=== PATIENT | male | born 1980 | race Caucasian/White ===

== ENCOUNTER 2017-04-12 21:50 | Inpatient (IN) | payer OTHER ==
[~2017-04-12] VITALS: Ht 172.7 cm; Wt 91.0 kg
--- NOTE | ~2017-04-12 | DS ---
Unit #: [id number] #: [id number] Patient: SUSIE CORADO [id number] [address] [place], [place] [address] [id number] I MR#: [id number] NAME: SUSIE CORADO ROOM: 310 Age: 36 Sex: M Admission Date: 04/13/2017 : 1980 Discharge Date: 04/17/2017 Attending Physician: Ramón Armando M.D. DISCHARGE SUMMARY REASON FOR ADMISSION Chest pain. HISTORY OF PRESENT ILLNESS/HOSPITAL COURSE Please refer to H and P for complete details. Essentially, the patient is a known IV drug abuser, who apparently had an overdose several weeks prior to admission, received CPR, and essentially details were not clear. He was noted on initial workup to have a left fifth rib fracture probably likely secondary to CPR, he was thus admitted for the same. It was also noted that he did have an elevated temperature while at home. He stated that he felt feverish and had diffuse arthralgias and/or myalgias. He was noted to have an elevated temperature of 101.6, and therefore, was admitted for the same. Underlying concern for possible endocarditis was made. The patient was seen and evaluated, and placed on telemetry floor. He continued to have low-grade fevers while he was here. Initial blood cultures did come back positive 1/2 for MRSA, this subsequently prompted an ID consultation. The patient was placed on routine and formal IV antibiotics. 2D echocardiogram was performed, which did reveal left ventricular systolic normal function with no vegetations noted on 2D echocardiogram; however, Infectious Disease Services did recommend TRAN to be performed. Plans were initiated for TRAN to be performed on 04/19/[address] Pelayo. However, on 04/17/2017, the patient stated that he "had better things to do," and therefore, decided to leave against medical advice. His discharge medications are unknown as well as further disposition is unknown, as the patient elected to leave against medical advice. At this point in time, his prognosis at best remains guarded/poor. He has longstanding history of IV drug abuse. We did place consultation to Dr. East, who saw and evaluated the patient here, maintained him on Requip, Vistaril, as well as trazodone. Did recommend consideration to outpatient [facility] for further evaluation. However, once again, he left AMA; therefore, at this point in time, I do not know further discharge plans. FINAL DISCHARGE DIAGNOSES 1. Fever present on admission. 2. Methicillin-resistant Staphylococcus aureus bacteremia positive 08/24, unclear source. 3. IV drug abuse ongoing. 4. Noncompliance. 5. Poor insight into disease process. Unit #: [id number] #: [id number] Patient: SUSIE CORADO 6. Chest wall pain likely secondary to recent cardiopulmonary resuscitation. 7. Left fifth rib fracture. DISCHARGE MEDICATIONS Unknown. The patient left AMA. Dictated by... Kory Chauhan/edouard TD: 04/19/2017 16:15 JOB #: [id number] DISCHARGE SUMMARY Page 1 of 1 X Ramón Armando MD X DISCHARGE SUMMARY
--- NOTE | ~2017-04-12 | CT16 ---
[facility] A Service of [facility] & [facility] RADIOLOGY TEXT RESULTS PATIENT: SUSIE CORADO LOCATION: [facility] 310-01 : 82 UNIT #: [id number] AGE: [address]: Ramón Armando MD SEX: M ORDER DR: [id number] [facility] [address] [facility]. [place], [place] [address] [id number] I MR#: [id number] Acc #: [id number] NAME: SUSIE CORADO : 1980 SEX: M STUDY DATE/TIME: 04/13/2017 3:58 UNIT: A PCU ROOM: 310 STUDY DESCRIPTION: CT Angio Chest for PE Attending Physician: Ramón Armanod M.D. Ordering Physician: Spencer Caban M.D. Primary Care Physician: No Primary Care Physician MEDICAL IMAGING REPORT This report is preliminary unless electronic signature is present EXAM CT chest with contrast, pulmonary arteriography protocol, 04/13/2017. HISTORY 36-year-old male 5 days status post cardiopulmonary resuscitation in another emergency department for reported drug overdose. He presents to this ED today complaining of ongoing left side chest pain, greatest with inspiration. TECHNIQUE CT examination of the chest with IV contrast using pulmonary arteriography protocol. CTA MIP images of the pulmonary arteries were reformatted in multiple planes. The initial set of images was nondiagnostic due to poor contrast opacification. The exam was then repeated after adjusting injection method and contrast timing with only slight improvement. This CT exam was performed with one or more of the following radiation dose reduction techniques: automatic exposure control, adjustment of mA and/or kV according to patient size, and iterative reconstruction. FINDINGS No evidence of pulmonary embolism within the main pulmonary arteries or larger central pulmonary arteries. Smaller peripheral pulmonary arteries are not assessed. Thoracic aorta is normal in caliber. Heart size normal. No pericardial effusion. There is a nondisplaced fracture through the anterior portion of the left fifth rib, and there is extensive overlying soft tissue contusion within the left anterior chest wall. There is also a tiny left pleural effusion with atelectasis in the dependent left lung base and additional atelectasis in the lingula deep to the fifth rib fracture. There is no pneumothorax. Remaining portions of both lungs are clear. Limited upper abdominal images are unremarkable. [facility]. [facility] A Service of [facility] RADIOLOGY TEXT RESULTS PATIENT: SUSIE CORADO LOCATION: [facility] 310-01 : [birth year] UNIT #: [id number] AGE: [address]: Ramón Armando MD SEX: M ORDER DR: IMPRESSION 1. Acute nondisplaced fracture of the left anterior fifth rib with extensive overlying soft tissue contusion in the left anterior chest wall and some underlying atelectasis in the lingula. No additional rib fracture. No pneumothorax. No other rib or sternum fracture. 2. Tiny left pleural effusion with dependent atelectasis in the left lung base. 3. No visible pulmonary embolism. Limitations as noted above. Dictated by... Damon Campbell M.D. THIS IS AN ELECTRONICALLY VERIFIED REPORT Damon Campbell M.D. at 04/13/2017 4:47 PM RGW/gz TD: 04/13/2017 11:38 JOB #: [id number] MEDICAL IMAGING REPORT Page 1 of 1 COPY
--- NOTE | ~2017-04-12 | CR72 ---
[facility] A Service of [facility] RADIOLOGY TEXT RESULTS PATIENT: SUSIE CORADO LOCATION: [facility] 310-01 : 82 UNIT #: [id number] AGE: [address]: Ramón Armando MD SEX: M ORDER DR: [id number] [facility] [address] [facility]. [place], [place] [address] [id number] I MR#: [id number] Acc #: [id number] NAME: SUSIE CORADO : 1980 SEX: M STUDY DATE/TIME: 04/12/2017 22:11 [facility] STUDY DESCRIPTION: CR Chest Single View Portable Attending Physician: Ramón Armando M.D. Ordering Physician: Mike Salguero M.D. Primary Care Physician: No Primary Care Physician MEDICAL IMAGING REPORT This report is preliminary unless electronic signature is present EXAM Portable chest 04/12/2017 HISTORY Mid left side chest pain for 4 days after giving chest compression to a friend. Smoking history. FINDINGS A single AP portable view of the chest shows both lungs to be clear. The heart is normal in size. The mediastinal contour is normal. No significant bone abnormalities are seen. IMPRESSION Normal portable chest. Dictated by... Mark Fuller M.D. THIS IS AN ELECTRONICALLY VERIFIED REPORT Mark Fuller M.D. at 04/13/2017 2:17 PM KRT/latasha TD: 04/13/2017 11:47 JOB #: [id number] MEDICAL IMAGING REPORT Page 1 of 1 COPY
--- NOTE | ~2017-04-12 | HP ---
Unit #: [id number] #: [id number] Patient: SUSIE CORADO [id number] [address] [address] [id number] E MR#: [id number] NAME: SUSIE CORADO ROOM: Age: 36 Sex: M Admission Date: 04/12/2017 : 1980 Attending Physician: Spencer Caban M.D. Primary Care Physician: No Primary Care Physician HISTORY AND PHYSICAL CHIEF COMPLAINT Fever in patient who injects heroin. HISTORY This 36-year-old male with history of heroin abuse is admitted for fever. The patient states that five days ago he received CPR for an unknown reason. Has been experiencing left-sided chest pain since that time. He presented to this emergency department late last evening with a temperature of 101.6. He denies cough or dysuria. A CTA was ultimately performed revealing a left anterior fifth rib fracture with soft tissue contusion of the chest wall and atelectasis. In the ER, he was bolused with IV fluids, given vancomycin and Zithromax. Again, denies cough or dysuria with the above. The patient himself is a poor historian and I have to prompt him several times to answer my questions. PAST MEDICAL HISTORY Unremarkable. ALLERGIES To codeine. HOME MEDICATIONS None. FAMILY HISTORY Was reviewed and is negative. SOCIAL HISTORY The patient states that he lives alone, smokes 1/2 pack per day of tobacco, and does not drink alcohol. Injects heroin on a daily basis. REVIEW OF SYSTEMS Difficult to obtain as I have to prompt the patient multiple times to answer my questions. PHYSICAL EXAMINATION GENERAL APPEARANCE: 36-year-old, mildly obese male who is moaning in discomfort. VITAL SIGNS: Temperature 101.6, pulse 128, respirations 18, blood pressure 107/66, and O2 saturation is 100% on room air. HEENT: Eyes: PERRLA. Extraocular muscles are intact. Pharynx is benign. NECK: Supple without adenopathy or thyromegaly. Unit #: [id number] #: [id number] Patient: SUSIE CORADO CHEST: Clear. CARDIAC: Tachy S1 and S2 without definite murmur. Left chest wall tenderness with redness and some swelling under the left breast from recent CPR. ABDOMEN: Bowels sounds are present. No hepatosplenomegaly, tenderness, or masses. EXTREMITIES: Without edema. Pedal pulses are present. No splinter hemorrhages noted over the fingernail beds. SKIN: Examination reveals some superficial picked dewitt and also track dewitt. NEUROLOGIC: Patient is mildly somnolent, moaning, but easily arousable. His cranial nerves are intact. He has equal strength throughout. DIAGNOSTIC STUDIES ADMISSION LABS: Hematocrit is 39.8, white blood count is 16.5, normal platelet count, 2 bands. SMA-12: Sodium 134, ALT 41. Lactic acid is normal. Urine tox screen is pending. Urinalysis: Trace protein. IMAGING: Chest x-ray: No acute disease. CTA of the chest shows a left anterior fifth rib fracture with soft tissue contusion over the chest wall and atelectasis. Tiny left pleural effusion. CARDIOVASCULAR: EKG: Sinus tachycardia, rate 120. ASSESSMENT 1. Fever in patient who injects heroin. Without bacteremia. 2. Left fifth rib fracture following CPR for an unknown reason five days ago. 3. Heroin abuse. PLANS 1. IV fluids. 2. Vancomycin and Rocephin pending blood cultures. 3. Medications for opiate withdrawal. Will ask social work to see for help at the time of discharge for the patient's substance abuse. 4. Check urine tox screen and HIV. 5. Gentle pain control. Dictated by Kory Lerma/lien TD: 04/13/2017 06:12 JOB #: [id number] Unit #: [id number] #: [id number] Patient: SUSIE CORADO HISTORY AND PHYSICAL Page 1 of 1 X Sarah Montelongo MD HISTORY AND PHYSICAL
--- NOTE | ~2017-04-12 | EKG ---
PATIENT: SUSIE CORADO UNIT #: [id number] Ventricular Rate: 121 BPM Atrial Rate: 121 BPM P-R Interval: 134 ms QRS Duration: 84 ms Q-T Interval: 290 ms QTC Calculation(Bezet): 411 ms P [place]: 63 degrees Calculated R [place]: 46 degrees Calculated T [place]: 48 degrees Diagnosis Line: Sinus tachycardia Diagnosis Line: Otherwise normal ECG Diagnosis Line: No previous ECGs available Diagnosis Line: Confirmed by JOE MOSCOSO MD ([id number]) on Diagnosis Line: 04/13/2017 12:16:00 PM INTERPRETING MD: LEYLA
--- NOTE | ~2017-04-12 | CO ---
Unit #: [id number] #: [id number] Patient: SUSIE CORADO [id number] [address] [address] [id number] I MR#: [id number] NAME: SUSIE CORADO ROOM: 310 Age: 36 Sex: M Admission Date: 04/13/2017 : 1980 Attending Physician: Ramón Armando M.D. Primary Care Physician: No Primary Care Physician Consultation Date: 04/15/2017 CONSULTATION REPORT REASON FOR CONSULTATION Positive blood culture. HISTORY OF PRESENT ILLNESS The patient is a 36-year-old gentleman with history of IV drug use. Last use was a week before being admitted. According to the notes, the patient received CPR a few days prior to admission. The patient is really unclear as to why it was done and where it was done, but nonetheless, he started having some pain on the left side of his chest with deep inspiration and upper body movement. Cannot remember when his fever started. With these problems, he came into the hospital. CT scan of the chest shows no pulmonary embolism. Did have acute left anterior fifth rib fracture with contusion. He also had fever and leukocytosis. He was admitted. Blood culture, one out of two upon admission, is Staphylococcus aureus. Sensitivity is pending. He is on Rocephin and vancomycin. Infectious disease consultation was requested for further evaluation and antibiotic management. On questioning at this time he is complaining of pain in the left elbow, which he says started after he came to the hospital. No trauma. No injury. PAST MEDICAL HISTORY Unremarkable. FAMILY HISTORY Noncontributory. SOCIAL HISTORY Remarkable for IV drug use. ALLERGIES Codeine. CURRENT MEDICATIONS Reviewed. Antibiotics include vancomycin and Rocephin. PHYSICAL EXAMINATION GENERAL: Lying in bed. Dozing off. VITAL SIGNS: Temperature 98, T-max 101.6, pulse 87, respirations 16, blood pressure 124/78. HEENT: Unremarkable. NECK: Supple. CHEST: Clear to auscultation. HEART: Normal S1 and S2. ABDOMEN: Soft, nontender. Bowel sounds positive. Unit #: [id number] #: [id number] Patient: SUSIE CORADO EXTREMITIES: No edema. Left elbow - There is no significant swelling, warmth, erythema, but it definitely is tender to touch, and there is restricted range of motion. DIAGNOSTIC STUDIES IMAGING: CT chest negative for pulmonary embolism. It did show left fifth anterior rib fracture and contusion. LABS: BUN 8, creatinine 0.7, AST 38, ALT 41, alkaline phosphatase 57. Lactic acid was 0.7. WBC 16.5, hemoglobin 13.6, platelets 257. HIV serology nonreactive. Tox screen positive for amphetamines, marijuana and opiates. Urinalysis had some trace proteinuria. Blood culture, one out of two upon admission, Staphylococcus aureus. Sensitivity is pending. Repeat cultures have been ordered. CARDIOVASCULAR: Transthoracic echo negative for any vegetation. ASSESSMENT 1. Staphylococcus aureus bacteremia, question source. 2. IV drug use. 3. Rule out left elbow septic arthritis. 4. Left fifth anterior rib fracture with contusion. PLAN At this time, I will go ahead and continue with vancomycin and stop Rocephin pending sensitivities of the Staphylococcus aureus. Follow up on the repeat cultures. Two-D echo is negative. if not other source is found, transesophageal echo may be needed. Will go ahead and get MRI of the left elbow with contrast for further evaluation of the pain to rule out any possibility of septic joint. Further recommendations depending upon the course. I would like to thank Dr. Armando for requesting us to participate in the care of this patient. We will follow this patient along with you. Dictated by... Kory Burden/bertram TD: 04/16/2017 08:53 JOB #: [id number] CONSULTATION REPORT Page 1 of 1 X Christiano Alvarenga MD X CONSULTATION REPORT
--- NOTE | ~2017-04-12 | CO ---
Unit #: [id number] #: [id number] Patient: SUSIE CORADO [id number] [address] [address] [id number] I MR#: [id number] NAME: SUSIE CORADO ROOM: 310 Age: 36 Sex: M Admission Date: 04/13/2017 : 1980 Attending Physician: Ramón Armando M.D. Primary Care Physician: No Primary Care Physician Consultation Date: 04/16/2017 CONSULTATION REPORT REASON FOR CONSULTATION TRAN. HISTORY OF PRESENT ILLNESS This is a 36-year-old male, who presented to the ER with reports of left chest pain/soreness, worse with deep breaths, lasting approximately five days. States the pain stared after receiving chest compressions from a friend who overdosed. His temperature in the ER was 101.6. A CT of the chest was negative for PE and positive for fifth rib fracture with soft tissue contusion and a tiny left pleural effusion. Blood cultures done on April 12 were positive for MRSA in 1/4 cultures. An echocardiogram done April 14, 2017, showed a left ventricular ejection fraction of 60% and no wall abnormalities and no valvular abnormalities were seen. He denies a prior history of medical diseases. Denies hypertension. Denies hyperlipidemia and denies diabetes mellitus. He is an IV drug abuser with heroin and methamphetamine. PAST MEDICAL HISTORY No known past medical history. FAMILY HISTORY States his mother had cardiac bypass as a child. SOCIAL HISTORY He is a 36-year-old male who smokes one pack per day for the past 15 years. He rarely uses alcohol. States he uses IV heroin as well as amphetamines and marijuana. REVIEW OF SYSTEMS He does report left-sided chest pain worse with deep breath described as soreness. He denies palpitations, shortness of air, or difficulty breathing. ALLERGIES Codeine. HOME MEDICATIONS He is not on any home medications. PHYSICAL EXAMINATION VITAL SIGNS: Temperature 98.3, heart rate 75, respiratory rate 16, blood pressure 91/57 to 101/60. HEENT: Head is atraumatic and normocephalic. Pupils are equal and reactive to light. Mucous membranes are moist and intact. Unit #: [id number] #: [id number] Patient: SUSIE CORADO NECK: Supple. Trachea is midline. No JVD. LUNGS: Clear. Nonlabored respirations. CARDIOVASCULAR: S1, S2. Regular rate and rhythm. No significant murmurs, rubs, or gallops. ABDOMEN: Soft, nontender, nondistended. Bowel sounds are active. EXTREMITIES: Pulses are palpable. No pedal edema. NEUROLOGIC: Alert and oriented x3. Follows all commands equally and moves extremities without difficulty. DIAGNOSTIC STUDIES LABORATORY: Sodium 132, potassium 4.2, chloride 100, BUN 10, creatinine 0.7, glucose 110. Point of care troponin was less than 0.05. Hemoglobin 12.6, hematocrit 36.4, white blood cell count 5.5, platelets 217,000. Tox screen was positive for amphetamines, marijuana, and opiates. Blood cultures done April 13, 2017 was positive for MRSA in 1/4 cultures. IMAGING: Chest x-ray showed normal portal chest x-ray. CT angio of chest was negative for PE. It did show acute nondisplaced fracture of left fifth rib with extensive overlying soft tissue contusion in the left anterior chest wall and underlying atelectasis in the lingula. There was no pneumothorax. There was a tiny left pleural effusion with dependent atelectasis in the left lung base. CARDIOVASCULAR: EKG shows sinus tachycardia with a rate of 120 and nonspecific T-wave abnormalities. ASSESSMENT 1. Left rib fracture with soft tissue contusion. 2. IV drug abuse. 3. Methicillin-resistant Staphylococcus aureus bacteremia. 4. Tobacco abuse. PLAN The patient ate this morning. We will plan to do a TRAN on Wednesday. He is to be NPO after midnight on Wednesday night. Risks and benefits were discussed with the patient and he verbalized understanding of this. Thank you for asking us to see this patient. We appreciate the consult. Dictated by... Chikis Dunaway APRN for Kory Garcia TD: 04/17/2017 11:29 JOB #: [id number] Unit #: [id number] #: [id number] Patient: SUSIE CORADO CONSULTATION REPORT Page 1 of 1 X X CONSULTATION REPORT
--- NOTE | ~2017-04-12 | CO ---
Unit #: [id number] #: [id number] Patient: NIK CORADO [id number] [facility] [address] [place], [place] [address] [id number] I MR#: [id number] NAME: NIK CORADO ROOM: 310 Age: 36 Sex: M Admission Date: 04/13/2017 : 1980 Attending Physician: Ramón Armando M.D. Primary Care Physician: No Primary Care Physician Consultation Date: 04/16/2017 CONSULTATION REPORT REASON FOR CONSULTATION Opiate abuse, opiate withdrawal, depression. HISTORY OF PRESENT ILLNESS Mr. Nik Corado is a 36-year-old male seen in room 310, bed 1 at [facility] on 04/16/2017. Patient reported history of IV opiate abuse, last use two days, having withdrawals. Patient reported that medication is helping some but still having a lot of problems with hot and cold sweats, anxiety, restlessness of his legs, trouble sleeping, depression. Denied any suicidal or homicidal ideation. Denied any psychotic symptoms. Patient's vital signs are 99, 78, 16, 109/67, oxygen saturation 99%. Patient was admitted due to fever. PAST PSYCHIATRIC HISTORY Patient's past psychiatric history is remarkable for history of substance abuse and depression. As mentioned above, drug of choice opiates. MEDICAL HISTORY Unremarkable except for current infection due to IV drug abuse. MEDICATION HISTORY No medications at home but currently prescribed: Percocet, Librium, morphine. FAMILY HISTORY AND SOCIAL HISTORY Patient reported he has a good support system. No history of abuse. History of substance abuse as mentioned above. REVIEW OF SYSTEMS A complete review of systems is unremarkable except as mentioned above. MENTAL STATUS EXAMINATION Vital signs are 99, 78, 16, 109/67, oxygen saturation 99%. General appearance: The patient dressed casually in hospital attire. Attention span and concentration fair. Speech regular rate, coherent. Oriented in time, place, and person. Mood and affect sad, dysphoric. Thought process coherent. Thought content: The patient denied any thoughts of harming self or others or any hallucinations. Recent and remote memory fair. Language intact. Fund of knowledge fair to slightly impaired. Insight and judgment fair to slightly impaired. DIAGNOSES PSYCHIATRIC: Opiate use disorder, severe, F11.20. Mood disorder, not otherwise specified, F32.9. Unit #: [id number] #: [id number] Patient: NIK CORADO SECONDARY DIAGNOSIS: Deferred. MEDICAL DIAGNOSIS: Please refer to history and physical. STRESSORS: Psychosocial stressors. ASSESSMENT AND PLAN 1. Supportive psychotherapy and psychoeducation provided to patient. 2. Educated about benefits and side effects of medication and course and prognosis of illness. 3. Advised to continue with current medication with plan to add Vistaril 25 mg three times a day, Requip 1 mg at bedtime, trazodone 50 mg at bedtime for sleep. Patient to continue with current treatment. If needed, consider further adjustment of medication. Patient was advised to follow up in (1) program upon discharge and given crisis line number, [phone]. Dictated by... Kory Wilson/tico TD: 04/18/2017 13:35 JOB #: [id number] CONSULTATION REPORT Page 1 of 1 X Wiley East MD X CONSULTATION REPORT
[~2017-04-12 21:50] MED LIST: KEFLEX500 MG PO; NO MEDICATIONS; ORUDIS75 M1 PO; VIBRAMYCIN100 M1 PO
[2017-04-12 23:20] LABS: BASOPHIL# 0.2 X10e3 (0-0.3); BASOPHIL% 1.1 % (0-2.5); EOSINOPHIL# 0.1 X10e3 (0-0.7); EOSINOPHIL% 0.3 % (0.0-7.0); HEMATOCRIT 39.8 % (38.0-50.0); HEMOGLOBIN 13.6 gm/dL (13.0-16.0); LYMPHOCYTE# 3.2 X10e3 (1.0-3.5); LYMPHOCYTE% 19.2 % (17.0-45.0); MEAN CELL VOLUME 85.3 FL (83-96); MEAN CORPUSCULAR HEMOGLOBIN 29.2 PG (28-34); MEAN CORPUSCULAR HGB CONC 34.3 g/dL (30-36); MEAN PLATELET VOLUME 8.1 FL (6.5-11.5); MONOCYTE# 1.2 X10e3 (0-1.0); MONOCYTE% 7.4 % (3.0-12.0); NEUTROPHIL# 11.9 X10e3 (1.5-7.1); PLATELET COUNT 257 X10e3 (140-420); RED BLOOD COUNT 4.67 X10e (3.90-5.60); RED CELL DISTRIBUTION WIDTH 13.7 % (11.0-15.5); WHITE BLOOD COUNT 16.5 X10e3 (4.0-10.5)
[2017-04-12 23:21] LABS: DIFF IND YES
[2017-04-12 23:27] LABS: ALBUMIN SERUM 3.6 g/dL (3.5-5.0); BILIRUBIN, DIRECT 0.2 mg/dL (0.0-0.2); BILIRUBIN,INDIRECT 0.9 mg/dL (0.0-0.9); BILIRUBIN,TOTAL 1.1 mg/dL (0.2-2.0); BUN/CREATININE RATIO 13.75; CALCIUM SERUM 8.7 mg/dL (8.4-10.2); CREATININE SERUM 0.8 mg/dL (0.6-1.4); GLOM FILT RATE Estimated 116.6 mL/min (>60); POTASSIUM 3.9 mmol/L (3.5-5.1); PROTEIN TOTAL SERUM 7.4 g/dL (6.0-8.3)
[2017-04-13 00:29] LABS: POC - CKMB 4.4 ng/mL (0.0-7.9); POC - TROPONIN <0.05 ng/mL (<=0.05)
[2017-04-13 00:35] LABS: PLATELET ESTIMATE NORMAL (NORMAL); RBC NORMAL YES; SMUDGE CELLS 6 /100
[2017-04-13 04:32] LABS: URINE SOURCE CLEAN CATCH
[2017-04-13 04:51] LABS: URINE APPEARANCE CLEAR; URINE BILIRUBIN NEG (NEG); URINE BLOOD NEG (NEG); URINE COLOR YELLOW; URINE GLUCOSE NEG (NEG); URINE KETONE NEG (NEG); URINE LEUKOCYTE ESTERASE NEG (NEG); URINE NITRATE NEG (NEG); URINE PH 7.5 (5-8); URINE PROTEIN TRACE (NEG); URINE SPECIFIC GRAVITY 1.043 (1.003-1.035)
[2017-04-13 04:59] LABS: POC - CKMB <1.0 ng/mL (0.0-7.9); POC - TROPONIN <0.05 ng/mL (<=0.05)
[2017-04-13 05:03] LABS: CULTURE INDICATED? NO
[2017-04-13] MEDS ORDERED: NO MEDICATIONS (07:04)
[2017-04-13 07:33] LABS: BASOPHIL# 0.1 X10e3 (0-0.3); BASOPHIL% 0.3 % (0-2.5); EOSINOPHIL% 0.2 % (0.0-7.0); HEMATOCRIT 36.4 % (38.0-50.0); HEMOGLOBIN 12.6 gm/dL (13.0-16.0); LYMPHOCYTE# 2.7 X10e3 (1.0-3.5); LYMPHOCYTE% 17.6 % (17.0-45.0); MEAN CELL VOLUME 83.8 FL (83-96); MEAN CORPUSCULAR HGB CONC 34.6 g/dL (30-36); MEAN PLATELET VOLUME 7.9 FL (6.5-11.5); MONOCYTE# 1.1 X10e3 (0-1.0); MONOCYTE% 7.1 % (3.0-12.0); NEUTROPHIL# 11.6 X10e3 (1.5-7.1); NEUTROPHIL% 74.8 % (40-75); PLATELET COUNT 217 X10e3 (140-420); RED BLOOD COUNT 4.35 X10e (3.90-5.60); RED CELL DISTRIBUTION WIDTH 13.5 % (11.0-15.5); WHITE BLOOD COUNT 15.5 X10e3 (4.0-10.5)
[2017-04-13 07:35] LABS: DIFF IND NO
[2017-04-13 07:53] LABS: AMPHETAMINE POS (NEG); BARBITURATES NEG (NEG); BENZODIAZEPINES NEG (NEG); COCAINE NEG (NEG); MARIJUANA POS (NEG); OPIATES POS (NEG); TRICYCLIC ANTIDEPRESSANTS NEG (NEG); U METHADONE NEG (NEG)
[2017-04-13 07:57] LABS: BUN/CREATININE RATIO 14.28; CALCIUM SERUM 7.9 mg/dL (8.4-10.2); CREATININE SERUM 0.7 mg/dL (0.6-1.4); GLOM FILT RATE Estimated 123.2 mL/min (>60); POTASSIUM 4.2 mmol/L (3.5-5.1)
[2017-04-14 06:00] LABS: CREATININE SERUM 0.7 mg/dL (0.6-1.4); GLOM FILT RATE Estimated 123.2 mL/min (>60)
[2017-04-16 06:03] LABS: CREATININE SERUM 0.7 mg/dL (0.6-1.4); GLOM FILT RATE Estimated 123.2 mL/min (>60)
[2017-04-17 06:17] LABS: HEMATOCRIT 36.4 % (38.0-50.0); HEMOGLOBIN 12.4 gm/dL (13.0-16.0); MEAN CELL VOLUME 84.8 FL (83-96); MEAN CORPUSCULAR HEMOGLOBIN 28.8 PG (28-34); MEAN CORPUSCULAR HGB CONC 33.9 g/dL (30-36); MEAN PLATELET VOLUME 7.9 FL (6.5-11.5); RED BLOOD COUNT 4.3 X10e (3.90-5.60); RED CELL DISTRIBUTION WIDTH 13.4 % (11.0-15.5)
[2017-04-17 06:51] LABS: ALBUMIN SERUM 2.5 g/dL (3.5-5.0); BILIRUBIN,TOTAL 0.4 mg/dL (0.2-2.0); BUN/CREATININE RATIO 15.71; CALCIUM SERUM 8.3 mg/dL (8.4-10.2); CREATININE SERUM 0.7 mg/dL (0.6-1.4); GLOM FILT RATE Estimated 123.2 mL/min (>60); POTASSIUM 3.8 mmol/L (3.5-5.1)
== END 2017-04-17 19:25 | disposition left against medical advice (07) | DRG 864 ==
LOC: CED 21:50 → C3A PCU 04-13 05:40 → CEDOF 04-13 05:40 → CED 04-13 06:46 → CEDOF 04-13 06:46 → C3A PCU 04-13 06:46 → CEDOF 04-13 07:48 → C3A PCU 04-13 08:32 → CEDOF 04-13 08:32 → C3A PCU 04-17 19:25
PROVIDERS: Emergency Medicine; Family Medicine
PROC: B24BZZZ Ultrasonography of Heart with Aorta (ICD-10-PCS; principal; 2017-04-14)
DX: R50.9 Fever, unspecified (principal); F11.20 Opioid dependence, uncomplicated; S22.32XA Fracture of one rib, left side, initial encounter for closed fracture; B95.62 Methicillin resistant Staphylococcus aureus infection as the cause of diseases classified elsewhere; Z91.19 Patient's noncompliance with other medical treatment and regimen; R07.9 Chest pain, unspecified; X58.XXXA Exposure to other specified factors, initial encounter; F15.10 Other stimulant abuse, uncomplicated; F17.200 Nicotine dependence, unspecified, uncomplicated; F39 Unspecified mood [affective] disorder; M25.522 Pain in left elbow
CPT/HCPCS: 36415; 71010; 71275; 80048; 80053; 80076; 80202; 80307; 81003; 82553; 82565; 83605; 84484; 84520; 85025; 85027; 85652; 86140; 87040; 87077; 87186; 87806; 93005; 93306; 96365; 99285; J0456; J0696; J2270; J3370; Q9967